=== PATIENT | female | born 1985 | race Caucasian/White ===

== ENCOUNTER 2018-08-01 10:42 | Outpatient (CLI) | payer OTHER ==
[2018-08-01 11:46] LABS: Hemoglobin 13.5 g/dL (12.0-16.0); Mean Corpuscular HGB CONC 32.6 g/dL (32.0-36.0); Mean Corpuscular Hemoglobin 31.9 pg (27.0-31.0); Mean Corpuscular Volume 97.9 fL (78.0-98.0); Mean Platelet Volume 6.6 fL (7.4-10.4); Platelet Count 415 thou/uL (130-400); Red Blood Cell (RBC) Count 4.24 mill/uL (4.20-5.40); White Blood Cell (WBC) Count 6.7 thou/uL (4.8-10.8)
[2018-08-01 12:00] LABS: BHCG - Serum Negative (NEGATIVE); Pregs Control Background? CLEAR/WHITE (CLR/WHITE); Pregs Control Bar Appear? YES (CONTROL BAR)
== END 2018-08-01 10:43 | disposition home or self-care (01) ==
LOC: LABBT 10:42
PROVIDERS: ATTEND Obstetrics & Gynecology
DX: Z01.812 Encounter for preprocedural laboratory examination (principal); R10.2 Pelvic and perineal pain; G89.29 Other chronic pain; Z80.41 Family history of malignant neoplasm of ovary
CPT/HCPCS: 84703; 85027; 86850; 86900; 86901

== ENCOUNTER 2018-08-03 09:51 | Day surgery (SDC) | payer OTHER ==
[2018-08-01 10:57] VITALS: BMI 26.4
[2018-08-03] MEDS ORDERED: CEFAZOLIN 2 GM/50 ML BAG ONE (10:21)
[2018-08-03] MEDS ORDERED: CeleCOXIB 100 MG CAP ONE (10:21)
[2018-08-03] MEDS ORDERED: Gabapentin 300 MG CAP ONE (10:21)
[2018-08-03] MEDS ORDERED: Fentanyl 100 MCG/2 ML VIAL ONE ×2 (10:55→14:00)
[2018-08-03] MEDS ORDERED: Famotidine/PF 20 mg/2ml Vial ONE (10:55)
[2018-08-03] MEDS ORDERED: Bupivacaine/Epinephrine 0.25% 30 ML VIAL ONE ×2 (11:42→12:29)
[2018-08-03] MEDS ORDERED: Midazolam HCl 2 mg/2 ml Vial ONE (11:48)
[2018-08-03] MEDS ORDERED: Meperidine HCl/PF 25 MG/ML VIAL ONE (13:42)
[2018-08-03] MEDS ORDERED: Ondansetron PF 4 MG/2 ML Vial ONE (15:11)
[2018-08-03] MEDS ORDERED: PROPOFOL 200 MG/20 ML VIAL ONE (15:11)
[2018-08-03] MEDS ORDERED: Glycopyrrolate 0.2 MG/ML 5 ML SYRINGE ONE (15:11)
[2018-08-03] MEDS ORDERED: Lidocaine 1% PF 5 ML VIAL ONE (15:11)
[2018-08-03] MEDS ORDERED: Ketorolac Tromethamine 30 MG/ML VIAL ONE (15:11)
[2018-08-03] MEDS ORDERED: Dexamethasone 20 MG/5 ML VIAL ONE (15:11)
--- NOTE | 2018-08-03 21:34 | OP ---
DATE OF PROCEDURE: 08/03/2018 PREOPERATIVE DIAGNOSES: Persistent right pelvic pain, painful intercourse and tender pelvic exam, st warren family history of ovarian cancer. POSTOPERATIVE DIAGNOSES: Persistent right pelvic pain, painful intercourse and tender pelvic exam, alem farmer family history of ovarian cancer, moderate bowel adhesive disease. Basically, normal appearing adnexa and uterus. Absent appendix. PROCEDURE: Diagnostic laparoscopy followed by right salpingo-oophorectomy and a left salpingectomy. SURGEON: Nghia Mckee M.D. MATTRESS WEAVER: Amanda Mohr M.D. 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 OPERATIVE FINDINGS: Included a moderate size uterus with normal appearing fallopian tubes with semi- pale uterine fundus. Normal right ovary which was not adherent or showing any signs of endometriosis . Normal left ovary and both tubes appeared normal. There were some upper abdominal adhesions to th e cecum and ascending colon, but none of these were appeared pathologic. OPERATIVE COMPLICATIONS: None. BLOOD LOSS: Less than 25 mL. DRAINS: Arellano was only drained during the procedure which was discontinued. COMPLICATIONS: None as previously noted. PROCEDURE IN DETAIL: The patient was taken to the operating room where she had been given IV cefazol in and had SCDs on. She was placed in lithotomy position, prepped and draped. A sponge stick was pl aced in the vagina because she had a Mirena IUD in place. The string was and she wanted to iris ve that. Her abdomen was prepped and draped and laparoscopic instruments were inserted first by using a Veress needle umbilical port and then incised large enough to accommodate a 10 mm trocar after the ab domen been insufflated to a pressure of 18 mm, which was later reduced to 15 mmHg. The larger trocar was inserted. The small lateral 5 mm trocars were inserted under local anesthetic. Similar technique and the instruments were used. The LigaSure device was used to take down the rig ht infundibulopelvic ligament and utero-ovarian ligament and then on the left side fallopian tube was excised with the same device, cauterizing and cutting as we went. There was no bleeding here. The specimen was placed on top of the uterine fundus. Endobag was placed through the larger laparoscope site. The laparoscope was then inserted through one of the lateral ports and the Endobag was placed in the abdomen and the specimens were placed within the Endobag and removed through the umbilical inc ision. The trocar closure device was used with 0 Vicryl suture to close the larger incision in the u mbilicus. The small incision was closed with subcuticular 3-0 plain suture after the gas was removed from the abdomen. The skin was reapproximated. The umbilical incision was sutured with subcuticula r 3-0 plain as well. Patient taken to recovery room having tolerated the procedure and anesthesia we ll. Arellano catheter was removed.
--- NOTE | 2018-08-04 01:07 | DIS ---
DATE OF ADMISSION: 08/03/2018 DATE OF DISCHARGE: 08/03/2018 REASON FOR ADMISSION: Persistent right pelvic pain, painful intercourse and tenderness on right exam as well as problem of strong family history of ovarian cancer to have cancer sparing surgery by meghann eneida of her left tube and pain relieving surgery by removal of right tube and ovary. She has been given adequate informed consent: On midday of 08/03/2018, she underwent a general anest hetic and a laparoscopic right salpingo-oophorectomy and left salpingectomy using the LigaSure device without complications. She was taken to the recovery room. Within approximately 2 hours, she was f elt to be ready for discharge. The nurse called and said her vital signs are normal. She had no ble eding, had no complaints of pain and had received Toradol in the operating room before going to [facility]. She has tramadol at home. IMPRESSION AND FINAL DIAGNOSES: Right pelvic pain, presumably due to an abnormal ovary, although it was grossly normal on inspection. Family history of ovarian cancer, now status post left salpingectomy and right salpingo-oophorectomy and Mirena IUD for cycle control. PLAN: Discharge the patient home on tramadol and Tylenol. She has got limitation regarding avoidanc e of intercourse and heavy lifting for a couple weeks. She will see me back in the office followup i n 2 weeks. She will go back to work on 08/07/2018. 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 Questions were entertained and she has emergency numbers to call if she has any p roblems.
== END 2018-08-03 15:28 | disposition home or self-care (01) ==
LOC: SDC 09:51
PROVIDERS: ATTEND Obstetrics & Gynecology
PROC: 0UT74ZZ Resection of Bilateral Fallopian Tubes, Percutaneous Endoscopic Approach (ICD-10-PCS; principal; 2018-08-03)
PROC: 0UT04ZZ Resection of Right Ovary, Percutaneous Endoscopic Approach (ICD-10-PCS; principal; 2018-08-03)
DX: G89.29 Other chronic pain (principal); R10.2 Pelvic and perineal pain; N83.01 Follicular cyst of right ovary; N73.6 Female pelvic peritoneal adhesions (postinfective); N94.10 Unspecified dyspareunia; F41.8 Other specified anxiety disorders; E66.3 Overweight; Z68.26 Body mass index [BMI] 26.0-26.9, adult; Z79.899 Other long term (current) drug therapy; Z80.41 Family history of malignant neoplasm of ovary; Z97.5 Presence of (intrauterine) contraceptive device
CPT/HCPCS: 88305; 96374; J0131; J1100; J1885; J2001; J2175; J2250; J2405; J2704; J3010; S0028

== ENCOUNTER 2018-08-04 02:03 | Emergency (ER) | payer OTHER ==
[2018-08-04] MEDS ORDERED: Ondansetron PF 4 MG/2 ML Vial ONE (02:15)
[2018-08-04] MEDS ORDERED: Ketorolac Tromethamine 30 MG/ML VIAL ONE (02:15)
[2018-08-04] MEDS ORDERED: Morphine 2 MG/ML SYRINGE ONE (02:15)
[2018-08-04 02:42] LABS: #Lymphocytes 1.7 thou/uL (1.20-3.40); #Monocytes 0.3 thou/uL (0.11-0.59); #Neutrophils 11.6 thou/uL (1.40-6.50); %Basophils 0.1 % (0.0-1.0); %Eosinophils 0.1 % (0.0-10.0); %Lymphocytes 12.2 % (21.0-51.0); %Monocytes 2.5 % (0.0-10.0); %Neutrophils 85.2 % (42.0-75.0); Hemoglobin 14.1 g/dL (12.0-16.0); Mean Corpuscular HGB CONC 33.9 g/dL (32.0-36.0); Mean Corpuscular Hemoglobin 32.1 pg (27.0-31.0); Mean Corpuscular Volume 94.7 fL (78.0-98.0); Mean Platelet Volume 6.7 fL (7.4-10.4); Platelet Count 518 thou/uL (130-400); White Blood Cell (WBC) Count 13.6 thou/uL (4.8-10.8)
[2018-08-04 02:53] LABS: Lactic Acid 2.9 mmol/L (0.5-2.2)
[2018-08-04 02:59] LABS: ALT (SGPT) 20 U/L (8-55); AST (SGOT) 16 U/L (5-34); Albumin 4.3 g/dL (3.5-5.0); Alkaline Phosphatase 119 U/L (40-150); Anion Gap 15 mmol/L (10-20); BUN (Urea Nitrogen) 10 mg/dL (7.0-18.7); Bilirubin, Total 0.5 mg/dL (0.2-1.2); Calc. Creatinine Clearance 0 mL/min (70-130); Calcium 9.8 mg/dL (7.8-10.44); Carbon Dioxide 20 mmol/L (22-29); Chloride 105 mmol/L (98-107); Estimated GFR-MDRD 79; Globulin 3.1 g/dL (2.4-3.5); Glucose 154 mg/dL (70-105); Lipase 10 U/L (8-78); Protein, Total 7.4 g/dL (6.0-8.3); Sodium 136 mmol/L (136-145)
--- NOTE | 2018-08-04 07:55 | CT ---
PRELIMINARY REPORT/[facility]/EMERGENTY AFTER-HOURS PROCEDURE CT Abdomen and Pelvis With Intravenous Contrast EXAM DATE/TIME: 08/04/2018 2:58 AM CLINICAL HISTORY: 32 years old, female; Pain; Abdominal pain; Localized; Lower; Prior surgery; Surgery date: Postoperat lacho (0-2 days); Patient HX: Lower abdominal pain; Patient recently had right ovary SX removal and tub al ligation yesterday. PT reports recent surgery and reports she had been feeling fine until today around 8: 30 after she moved a heavy mattress and then experienced some pain. PT denies any vag inal bleeding or discharge. PT denies any vaginal intercourse or tampon use since surgery. PT reports she doesn't have normal bowel movements and can go a weak without having a bowel movement and hasn't had to go today. Ermd discussed plan with PT and family. Surgical history of appendectomy, surgical history of cholecystectomy, surgical history of section x2, laparoscopic removal o f benign tumor removed from l ovary TECHNIQUE: Axial computed tomography images of the abdomen and pelvis with intravenous contrast. Coronal reformatted images were created and reviewed. COMPARISON: No relevant prior studies available. FINDINGS: Lower thorax: No acute findings. ABDOMEN: Liver: Normal. No mass. Gallbladder and bile ducts: Prior cholecystectomy. Pancreas: Normal. No ductal dilation. Spleen: Normal. No splenomegaly. Adrenals: Normal. No mass. Kidneys and ureters: Normal. No hydronephrosis. Stomach and bowel: Colonic diverticulosis. No diverticulitis. No bowel wall thickening or intestinal obstruction. Appendix: Appendix not visualized. No evidence of appendicitis. PELVIS: Bladder: Unremarkable as visualized. Reproductive: 2 cm luteal cyst of the left ovary appears partially collapsed/ruptured. IUD in place, appears adequately positioned. ABDOMEN and PELVIS: Intraperitoneal space: Physiologic amount of free fluid in the pelvis. Expected postoperative pneumop eritoneum. Bones/joints: No acute fracture. No dislocation. Soft tissues: Expected postsurgical changes of the anterior abdominal wall. Vasculature: Normal. No abdominal aortic aneurysm. Lymph nodes: Normal. No enlarged lymph nodes. IMPRESSION: 1. 2 cm luteal cyst of the left ovary appears partially collapsed/ruptured. 2. Expected postoperative pneumoperitoneum. Thank you for allowing us to participate in the care of your patient. Dictated and Authenticated by: Carlos De Jesus MD 08/04/2018 3:10 AM Central Time ([place] & [place]) FINAL REPORT CT ABDOMEN AND PELVIS WITH IV CONTRAST: I agree with the preliminary report given by Dr. Carlos De Jesus of [facility]. There are a few tiny low- density lesions in the dome of the liver, likely cysts. POS: [facility]
[2018-08-04] MEDS ORDERED: ISOVUE-370 76%-LOCM 1 ML ONE (12:28)
== END 2018-08-04 04:03 | disposition home or self-care (01) ==
LOC: ERS 02:03
DX: G89.18 Other acute postprocedural pain (principal); R10.9 Unspecified abdominal pain; K59.00 Constipation, unspecified; N83.202 Unspecified ovarian cyst, left side
CPT/HCPCS: 36415; 74177; 80053; 83605; 83690; 85025; 96361; 96374; 96375; J1885; J2270; J2405

== ENCOUNTER 2018-09-13 11:44 | Outpatient (CLI) | payer OTHER ==
--- NOTE | 2018-09-13 14:51 | MRI ---
MRI LUMBAR SPINE WITH AND WITHOUT CONTRAST: HISTORY: Right leg and back pain. COMPARISON: 12/11/2016 TECHNIQUE: An MRI of the lumbar spine is performed with and without intravenous Gadolinium administration. Mult isequential, multiplanar imaging is performed. FINDINGS: Appropriate T1 marrow signal intensity of the lumbar vertebrae. Lumbar spine vertebral body height i s maintained. There is no fracture. No significant STIR hyperintensity to suggest vertebral body ed susan or ligamentous injury. Post contrast images demonstrate appropriate enhancement of the vertebral bodies. No abnormal enhanc ement within the central spinal canal, including the cauda equina and the conus medullaris. Appropriate signal intensity in the visualized solid organs. Symmetric signal intensity of the psoas muscles. The conus medullaris terminates at the mid L1 level. T12-L1: Adequate disk hydration. No significant central canal stenosis. The neural foramina are pa tent. L1-L2: Adequate disk hydration. No significant central canal stenosis. The neural foramina are pat ent. L2-L3: Adequate disk hydration. No significant central canal stenosis. The neural foramina are pat ent. L3-L4: Adequate disk hydration. No significant central canal stenosis. The neural foramina are pat ent. L4-L5: Posterior midline laminectomy defect. Desiccation with mild loss of disk space height. Gene ralized disk bulge without significant central canal stenosis. The right neural foramen is patent. Mild left foraminal narrowing. Post contrast images demonstrate minimal enhancing scar tissue at the laminectomy defect site. L5-S1: Minimal desiccation without significant loss of disk space height. There is persistent T2 an d STIR hyperintensity with associated enhancement involving the midline of the disk. Small annular f issure is redemonstrated. There has been no appreciable change. There is no significant central can al stenosis or neural foraminal narrowing. IMPRESSION: 1. Postoperative changes at L4-L5. 2. No significant central canal stenosis or significant foraminal narrowing. 3. Redemonstration of an annular fissure at L5-S1. 4. No significant associated central canal stenosis or foraminal narrowing. POS: [facility]
--- NOTE | 2018-09-13 14:54 | RAD ---
LUMBAR SPINE RADIOGRAPHS FOUR VIEWS: Comparison: 07-11-14 Indication: Radiculopathy of the lumbar spine, pain. FINDINGS: Flexion, extension, lateral projections in additional to frontal view of the lumbar spine provided. T here is no significant malalignment or obvious translational motion. Mild disc degenerative narrowing of the L4-5 and L5-S1 spaces is present with endplate sclerosis and mild osteophytosis. There is mil d facet osteoarthritis of the lumbar spine inferiorly. Intrauterine device is incidentally noted. IMPRESSION: No evidence of significant malalignment or translational motion within the lumbar spine. POS: [facility]
== END 2018-09-13 11:45 | disposition home or self-care (01) ==
LOC: MRI 11:44
PROVIDERS: ATTEND Neurological Surgery
DX: M54.16 Radiculopathy, lumbar region (principal); Z98.890 Other specified postprocedural states
CPT/HCPCS: 72120; 72158

== ENCOUNTER 2019-02-23 13:35 | Outpatient (CLI) | payer OTHER ==
--- NOTE | 2019-02-23 14:23 | MRI ---
MRI LUMBAR SPINE WITHOUT CONTRAST: HISTORY: Lumbar radicular pain. Low back pain since 2016. COMPARISON: 12/03/2016, 12/11/2016, 09/13/2018 FINDINGS: Appropriate T1 marrow signal intensity of the lumbar vertebra. Vertebral body height is maintained. No fracture. No significant STIR hyperintensity to suggest vertebral body edema or ligamentous injury. Appropriate signal intensity of the paraspinal muscles and solid organs. The conus medullaris terminates at the mid L1 level. Redemonstration of a laminectomy defect at the L4-L5 disk space. T12-L1: Adequate disc hydration. No significant central canal stenosis or neural foraminal narrowing . L1-L2: Adequate disc hydration. No significant central canal stenosis or neural foraminal narrowing . L2-L3: Adequate disc hydration. No significant central canal stenosis or neural foraminal narrowing . L3-L4: Adequate disc hydration. No significant central canal stenosis or neural foraminal narrowing . L4-L5: Posterior laminectomy defect. Stable loss of disc space height and disc desiccation. Genera lized disc bulge with a central and right subarticular disc protrusion, which flattens the ventral thecal sac. Encroachment upon both subarticular zones, right slightly greater than left. Neverthele ss, there is only mass effect without obscuration of the traversing bilateral L5 nerve roots. Bilaterally, the neural foramina are mildly narrowed. L5-S1: Desiccation with mild loss of disc space height. There is a persistent T2 hyperintensity robert ng the posterior margin of the annulus, which has been previously described to be an annular fissure. No significant central canal stenosis. Mild bilateral foraminal narrowing. IMPRESSION: Stable postoperative changes at L4-L5. Slight interval mass effect upon the ventral thecal sac at L4 -L5. Disc material does abut but does not obscure either traversing L5 nerve root. Transcribed Date/Time: 02/23/2019 2:42 PM
== END 2019-02-23 13:36 | disposition home or self-care (01) ==
LOC: BICMRI 13:35
PROVIDERS: ATTEND Specialist
DX: M54.16 Radiculopathy, lumbar region (principal); M48.9 Spondylopathy, unspecified; Z98.890 Other specified postprocedural states
CPT/HCPCS: 72148

== ENCOUNTER 2019-06-07 08:28 | Emergency (ER) | payer OTHER ==
--- NOTE | 2019-06-07 10:39 | CT ---
CT Lumbar Spine WO Con History: Trauma Comparison: MRI lumbar spine February 23, 2019 Findings: There is no acute fracture or malalignment of the lumbar spine. The transverse processes ar e intact. Mild degenerative changes of the SI joints. Intrauterine device of the uterus. No free fluid within the pelvis. Punctate right renal calculi. Large disc extrusion at L4/L5 causes bilateral neural foraminal narrowing as well as spinal canal josefina rowing. Impression: 1. No acute fracture of the lumbar spine. 2. Large disc extrusion at L4/L5 as seen on the February 23, 2019 MRI exam.
== END 2019-06-07 10:52 | disposition home or self-care (01) ==
LOC: ERS 08:28
DX: M54.5 Low back pain (principal); F32.9 Major depressive disorder, single episode, unspecified; Z79.899 Other long term (current) drug therapy; W01.0XXA Fall on same level from slipping, tripping and stumbling without subsequent striking against object, initial encounter
CPT/HCPCS: 72131

== ENCOUNTER 2019-07-06 11:18 | Outpatient (CLI) | payer OTHER ==
--- NOTE | 2019-07-06 14:58 | MRI ---
LUMBAR SPINE MRI WITH AND WITHOUT CONTRAST: DATE: 07/06/2019. HISTORY: Back pain with back spasms and right leg tingling, prior lumbar spine laminectomy. TECHNIQUE: Multiplanar multisequence MR imaging of the lumbar spine is obtained with and without contrast. FINDINGS: On the basis of 5 lumbar-type vertebral bodies, the conus medullaris terminates at the L1 level. The sagittal STIR imaging demonstrates no focal area of osseous marrow edema. T12-L1: Intervertebral disc height and signal intensity is within normal limits with no significant c entral canal or neural foraminal stenosis. L1-2: Intervertebral disc height and signal intensity is within normal limits with no significant vangie tral canal or neural foraminal stenosis. L2-3: Intervertebral disc height and signal intensity is within normal limits with no significant vangie tral canal or neural foraminal stenosis. L3-4: Intervertebral disc height and signal intensity within normal limits. No significant central ca nal or neural foraminal stenosis. L4-5: There is disc space narrowing, disc desiccation, and disc bulge. The patient appears status pos t laminectomy at this level. The disc bulge has increased in conspicuity when compared to the 2018 examination. There is no significant central canal stenosis however. Mild facet hypertrophy is presen t with no significant neural foraminal stenosis. L5-S1: There is mild disc space narrowing and disc desiccation with minimal disc bulge. No central ca nal stenosis. Small stable central annular tear. Mild bilateral facet hypertrophy with no significant neural foraminal stenosis on either side. The postcontrast imaging demonstrates no abnormal enhancement involving the contents of the thecal sa c. There is minimal enhancement posterior to the facet joint on the right at L4-5 which may signify mild scar or inflammatory change. The imaged retroperitoneal structures appear grossly unremarkable. IMPRESSION: Postoperative and degenerative change within the lumbar spine as detailed above. No severe central ca nal or neural foraminal stenosis. Transcribed Date/Time: 07/06/2019 3:07 PM
--- NOTE | 2019-07-06 15:09 | RAD ---
4 views of the lumbar spine: 07/06/2019 COMPARISON: None HISTORY: Lumbar spondylolisthesis FINDINGS: IUD overlies the pelvis. Clips in the right upper quadrant suggest prior cholecystectomy. L umbar pedicles appear intact on frontal imaging. The lateral neutral, flexion, and extension views demonstrate no anterolisthesis or retrolisthesis. Laminectomy changes are noted at L4. IMPRESSION: Postoperative changes. No acute osseous abnormality.
== END 2019-07-06 11:19 | disposition home or self-care (01) ==
LOC: BICMRI 11:18
PROVIDERS: ATTEND Neurological Surgery
DX: M43.16 Spondylolisthesis, lumbar region (principal); M47.816 Spondylosis without myelopathy or radiculopathy, lumbar region; Z98.890 Other specified postprocedural states
CPT/HCPCS: 72110; 72158

== ENCOUNTER 2019-07-31 06:28 | Outpatient (CLI) | payer OTHER ==
[2019-07-31 10:39] LABS: Hemoglobin 12.8 g/dL (12.0-16.0); Mean Corpuscular HGB CONC 34.2 g/dL (32.0-36.0); Mean Corpuscular Hemoglobin 33.7 pg (27.0-31.0); Mean Corpuscular Volume 98.5 fL (78.0-98.0); Mean Platelet Volume 7.3 fL (7.4-10.4); Platelet Count 340 thou/uL (130-400); RBC Distribution Width 11.5 % (11.5-14.5); White Blood Cell (WBC) Count 6.5 thou/uL (4.8-10.8)
[2019-07-31 10:45] LABS: PTT 37.3 SEC (22.9-36.1); Prothrombin Time 12.9 SEC (12.0-14.7)
== END 2019-07-31 06:29 | disposition home or self-care (01) ==
LOC: LABBT 06:28
PROVIDERS: ATTEND Neurological Surgery
DX: Z01.812 Encounter for preprocedural laboratory examination (principal); M43.16 Spondylolisthesis, lumbar region
CPT/HCPCS: 85027; 85610; 85730

== ENCOUNTER 2019-08-01 05:31 | Inpatient (IN) | payer OTHER ==
[2019-07-31 09:12] VITALS: BMI 26.2
--- NOTE | 2019-07-31 17:21 | HP ---
HISTORY OF PRESENT ILLNESS: Ms. Reynoso is back in the office. She has had an L4-L5 laminectomy and diskectomy for a very large disk herniation in 2017. She did well and the past year has been difficult. There is pain with rolling over in bed. There is locking of the back in certain positions. There is pain down the right leg to the top of the foot. There is no new weakness. No incontinence. She has done therapy five times. Recently in April, she has had injections. Recent falls took her to the ER, where a CT has not revealed any fractures, but showed the L4-L5 disk was prominently out of place. PAST MEDICAL HISTORY: Depression, anemia, ovarian tumor, IBS. PAST SURGICAL HISTORY: Appendectomy, x2, cholecystectomy, left ovarian tumor removal, lumbar L4-L5 laminectomy. FAMILY HISTORY: Father alive with hypertension. Mother is alive. SOCIAL HISTORY: The patient is a nonsmoker. Denies other tobacco use. Uses alcohol occasionally. No other illicit drug use. 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 REVIEW OF SYSTEMS: A 10-point review of systems has been completed and is negative other than stated in the above HPI. PHYSICAL EXAMINATION: CONSTITUTIONAL: The patient is awake, alert, oriented, in no visible distress, nontoxic. RESPIRATIONS: Normal work of breathing on room air. NEUROLOGIC: Gait and station, walk gingerly, but stable balance. Motor exam; there is normal strength in the iliopsoas, quadriceps, hamstrings, gastrocs, and toe flexors. Mild if any anterior tibialis weakness. Sensory exam, L5 right greater than left distribution. IMAGING: MRI shows L4-L5 disk protrusion. No instability on flexion extension x-rays. ASSESSMENT AND PLAN: Ms. Reynoso is a 33-year-old female with a recurrent disk protrusion at L4-L5. We have recommended redo laminectomy of L4-L5 with a transforaminal interbody fusion. The patient states that she is willing to proceed with this procedure and understands the risks. Job ID: [id number]
[2019-08-01] MEDS ORDERED: Bupivacaine HCl 0.5%/Epinephrine 1:200,000/PF 30 ml Vial ONE (06:12)
[2019-08-01] MEDS ORDERED: Sodium Chloride 0.9% 20 ML ONE (06:12)
[2019-08-01] MEDS ORDERED: Thrombin 5000 UNITS/5 ML VIAL ONE (06:12)
[2019-08-01] MEDS ORDERED: Albumin 5% 500 ML ONE (06:34)
[2019-08-01] MEDS ORDERED: Fentanyl 250 MCG/5 ML VIAL ONE (06:55)
[2019-08-01] MEDS ORDERED: Midazolam HCl 2 mg/2 ml Vial ONE (07:00)
[2019-08-01] MEDS ORDERED: Phenylephrine HCL 10 MG/ML VIAL ONE (09:56)
[2019-08-01] MEDS ORDERED: PHENYLEPHRINE-NS 100 MCG/ML 10 ML SYRINGE ONE (10:34)
[2019-08-01] MEDS ORDERED: PROPOFOL 200 MG/20 ML VIAL ONE (10:34)
[2019-08-01] MEDS ORDERED: Rocuronium Bromide 10 MG/ML (10ML VIAL) ONE (10:34)
[2019-08-01] MEDS ORDERED: Dexamethasone 20 MG/5 ML VIAL ONE (10:34)
[2019-08-01] MEDS ORDERED: ePHEDrine/0.9% NaCl/PF SYRINGE 50 mg/10 ml ONE (10:34)
[2019-08-01] MEDS ORDERED: Ondansetron PF 4 MG/2 ML Vial ONE (10:34)
[2019-08-01] MEDS ORDERED: Glycopyrrolate 0.2 MG/ML 5 ML SYRINGE ONE (10:34)
[2019-08-01] MEDS ORDERED: Lidocaine 1% PF 5 ML VIAL ONE (10:34)
[2019-08-01] MEDS ORDERED: diphenhydrAMINE 50 MG/ML VIAL IVP PRN (12:01)
[2019-08-01] MEDS ORDERED: Acetaminophen 325 MG TAB PO PRN (12:01)
[2019-08-01] MEDS ORDERED: Acetaminophen 650 MG Suppository PR PRN (12:01)
[2019-08-01] MEDS ORDERED: Promethazine 25 MG TAB PO PRN (12:01)
[2019-08-01] MEDS ORDERED: diphenhydrAMINE 25 MG CAP PO PRN (12:01)
[2019-08-01] MEDS ORDERED: Morphine 4 MG/ML VIAL SLOW IVP PRN (12:01)
[2019-08-01] MEDS ORDERED: Mag-Al 1200 mg/1200 mg/30 ML UDCUP PO PRN (12:01)
[2019-08-01] MEDS ORDERED: Morphine 2 MG/ML SYRINGE SLOW IVP PRN (12:01)
[2019-08-01] MEDS ORDERED: Bisacodyl 10 MG SUPP PR PRN (12:01)
[2019-08-01] MEDS ORDERED: Ondansetron PF 4 MG/2 ML Vial IVP PRN (12:01)
[2019-08-01] MEDS ORDERED: Acetaminophen/Codeine 30-300mg Tablet PO PRN (12:01)
[2019-08-01] MEDS ORDERED: Milk Of Magnesia 30 ML UDCUP PO PRN (12:01)
[2019-08-01] MEDS ORDERED: Promethazine HCl 25 MG/ML VIAL IM PRN (12:01)
[2019-08-01] MEDS ORDERED: HYDROmorphone 2 MG/ML VIAL ONE ×2 (12:02→14:21)
[2019-08-01] MEDS ORDERED: HYDROcodone/Acetaminophen 10/325 mg Tablet PO PRN (12:06)
[2019-08-01] MEDS ORDERED: Fentanyl 100 MCG/2 ML VIAL ONE ×3 (12:24→13:48)
--- NOTE | 2019-08-01 12:27 | OP ---
DATE OF PROCEDURE: 08/01/2019 MANOMETER TECHNICIAN: Priscilla Odell PA-C PREOPERATIVE INDICATION: Treat pain and prevent neurological deterioration. PREOPERATIVE DIAGNOSES: Prior L4-5 laminectomy with diskectomy, current L4-5 spinal instability, pain, and right L5 radiculopathy. POSTOPERATIVE DIAGNOSES: Prior L4-5 laminectomy with diskectomy, current L4-5 spinal instability, pain, and right L5 radiculopathy. PROCEDURES PERFORMED: Reopening lumbar incision, repeat laminectomy, facetectomy, foraminotomy, L4-L5; transforaminal lumbar interbody arthrodesis, L4-L5; placement of intervertebral biomechanical device, L4-L5; pedicle screw and ayleen instrumentation, L4 and L5; posterolateral arthrodesis L4 and L5; local morselized autograft, morselized allograft, and operating microscope. PREOPERATIVE MEDICATIONS: Ancef 2 g IV. DRAIN NUMBER: Zero. DRAIN TYPE: None. DESCRIPTION OF PROCEDURE: The patient was brought to the operating room. General endotracheal anesthesia was induced. The patient was carefully positioned on the Jose A frame with her chest and hips supported by the appropriate attachments of the Jose A frame. A lateral fluoro radiograph was used to confirm that the previous incision was centered at L4-L5. We planned an extension giving us access to the pedicles of L4 and L5 as well. The lumbar skin was sterilely prepped and draped. We opened our planned incision with a 10 blade knife and controlled bleeding with bipolar cautery. We used monopolar cautery to dissect through subcutaneous tissues to the thoracodorsal fascia. We incised the fascia in the midline and reflected the paraspinal muscles and scar tissue off the spinous process and lamina of the inferior portion of L3, all of L4, and all of L5. We carried our dissection over to the facet joints. We placed a marker at L4-L5 and took a lateral fluoro radiograph to confirm the levels upon which we were operating. We then carried our dissection over the facet joints at L3-L4 and L4-L5 to identify the transverse processes of L4 and L5 bilaterally. We then turned our attention to decompression. Using curettes, we scar tissue from the remainder of the lamina of L4 and the top of L5. Using Kerrison rongeurs, we widened and extended our laminectomies. We carried our laminectomy superiorly until there was a rim of L4 left. We widened until we were around scar tissue and flushed with the L5 pedicles, and we carried our dissection inferiorly until we were past the scar tissue and could identify normal dura. The operating microscope was brought into the field. Under microscopic magnification and using microsurgical techniques, we freed the L5 nerve roots from scar tissue over the interspace. We ensured the L4 nerve roots were free, and we made sure that we could retract the thecal sac to access the intervertebral space. We then performed a complete facetectomy of L4-5 on the right side. This gave us extra room to access the interspace. Under the microscope, we incised the interspace, and we removed disk contents using curettes and rongeurs. We then prepared the endplates for grafting with up and down angled curettes and measured the height of the interspace with a bone rasp to 9 mm. A 9 mm PEEK graft was brought into the field. Bone removed during our decompression was carefully cleaned of soft tissue, morcellized and added into demineralized bone matrix to form our fusion substrate. The substrate was packed into the center of our PEEK graft and that was advanced into the interspace under radiographic guidance to the appropriate depth. We turned our attention to pedicle screw instrumentation. The operative microscope was taken out of the field. Using bony anatomic landmarks, palpation of the medial portion of the pedicles, and a lateral fluoro radiograph as our guide, we chose entry points for pedicle screws at L4 and L5 bilaterally. We drilled out our entry points and then used a bone awl to advance through the pedicles to the vertebral bodies. We probed our trajectories and found it completely encased in bone. We then used a 5.5 mm tap to tap our trajectories. We placed 6.5 mm diameter screws. The screws were placed in the pedicles of L4 and L5, and we confirmed positioning with a 360-degree image set using our isocentric C-arm. With this confirmation completed, we brought the rods into the field. Titanium rods were placed down into the screw heads, and we tightened caps over the rods. We compressed across the interspace while we used a torque/counter-torque mechanism to ensure adequate tightness of the caps. We irrigated with bacitracin irrigation. We then decorticated the transverse processes of L4 and L5 bilaterally, and over the decorticated bone, we left demineralized bone matrix and morselized autograft as our posterolateral fusion substrate. We infused local anesthetic in the paraspinal muscles. We treated the wound with vancomycin powder, and we closed in anatomical layers. This was a clean case, no contamination. Job ID: [id number]
[2019-08-01] MEDS ORDERED: CEFAZOLIN 2 GM in Premix Bag 1 BAG IVPB SCH (14:00)
[2019-08-01] MEDS ORDERED: HYDROmorphone 0.5 MG/0.5 ML SYRINGE ONE (14:08)
[2019-08-01] MEDS: Acetaminophen/Codeine 30-300mg Tablet PO PRN ×2 (17:05→20:03)
[2019-08-01] MEDS: Sodium Chloride 0.9% 1,000 ML IV SCH ×2 (17:16→18:23)
[2019-08-01] MEDS ORDERED: Sodium Chloride 0.9% 500 ML IV SCH ×2 (18:15→23:45)
[2019-08-01] MEDS: tiZANidine HCl 4 MG TAB PO PRN (18:21)
[2019-08-01] MEDS: CEFAZOLIN 2 GM in Premix Bag 1 BAG IVPB SCH (18:22)
[2019-08-01] MEDS: Venlafaxine HCl XR 75 MG CAP PO SCH (20:45)
[2019-08-01] MEDS: Topiramate 25 MG TAB PO SCH (20:45)
[2019-08-01] MEDS ORDERED: Venlafaxine HCl XR 150 MG CAP PO SCH (21:00)
[2019-08-01] MEDS: Acetaminophen 1,000 MG in Premix Bag 1 BAG IVPB SCH (21:42)
[2019-08-02] MEDS: Acetaminophen 1,000 MG in Premix Bag 1 BAG IVPB SCH (03:14)
[2019-08-02] MEDS: CEFAZOLIN 2 GM in Premix Bag 1 BAG IVPB SCH (03:58)
[2019-08-02 04:32] LABS: #Lymphocytes 2.2 thou/uL (1.20-3.40); #Monocytes 0.7 thou/uL (0.11-0.59); #Neutrophils 6.7 thou/uL (1.40-6.50); %Basophils 0.3 % (0.0-1.0); %Eosinophils 0.5 % (0.0-10.0); %Lymphocytes 22.6 % (21.0-51.0); %Monocytes 6.9 % (0.0-10.0); %Neutrophils 69.7 % (42.0-75.0); Hemoglobin 9.5 g/dL (12.0-16.0); Mean Corpuscular HGB CONC 34.4 g/dL (32.0-36.0); Mean Corpuscular Hemoglobin 33.8 pg (27.0-31.0); Mean Corpuscular Volume 98.4 fL (78.0-98.0); Mean Platelet Volume 7.3 fL (7.4-10.4); Platelet Count 253 thou/uL (130-400); RBC Distribution Width 11.5 % (11.5-14.5); White Blood Cell (WBC) Count 9.6 thou/uL (4.8-10.8)
--- NOTE | 2019-08-02 07:50 | PRG ---
DATE OF SERVICE: 08/02/2019 I saw Hilda Reynoso in her hospital room this morning. She is one day out from revision laminectomy with TLIF at L4-L5. Overnight, her blood pressures dipped into the 70s at one point, and for this reason, narcotic analgesics were withheld. This has made her back extremely sore and she has not been out of bed due to pain control issues. When I entered this morning, blood transfusion is being administered. Her hemoglobin is 9.5. On electronic chart, no fevers have been recorded and the vital signs show blood pressures from 77 to 92. Other vital signs have been stable. On examination, there is no new neurological deficit in the lower extremities. The right L5 radicular pain and numbness are much better than they were before surgery. Plan today is to make adjustments to her analgesic regimen to allow her blood pressure to stay up and to allow her to participate in ambulation. When she begins moving around, I think her blood pressure will respond nicely and this will decrease the pain from muscle spasm in her back. Hopefully, we can make significant improvement today so that she may be ready for discharge by tomorrow. Job ID: [id number]
[2019-08-02] MEDS: tiZANidine HCl 4 MG TAB PO PRN ×2 (08:24→20:42)
[2019-08-02] MEDS: Acetaminophen/Codeine 30-300mg Tablet PO PRN (09:11)
[2019-08-02] MEDS: fentaNYL Citrate/PF 2,000 MCG in Sodium Chloride 0.9% 60 ML IV PRN (11:20)
[2019-08-02] MEDS: Topiramate 25 MG TAB PO SCH ×2 (11:24→20:42)
[2019-08-02] MEDS: Acetaminophen 500 MG TAB PO SCH ×3 (16:45→23:29)
[2019-08-02] MEDS: Sodium Chloride 0.9% 1,000 ML IV SCH (16:45)
[2019-08-02] MEDS: Venlafaxine HCl XR 75 MG CAP PO SCH (20:42)
[2019-08-03] MEDS: Acetaminophen 500 MG TAB PO SCH ×4 (05:47→23:16)
[2019-08-03] MEDS: Sodium Chloride 0.9% 1,000 ML IV SCH ×2 (05:49→23:16)
[2019-08-03] MEDS: Topiramate 25 MG TAB PO SCH ×2 (09:08→20:36)
[2019-08-03] MEDS: tiZANidine HCl 4 MG TAB PO PRN ×2 (09:24→15:15)
[2019-08-03] MEDS: fentaNYL Citrate/PF 2,000 MCG in Sodium Chloride 0.9% 60 ML IV PRN (16:47)
[2019-08-03] MEDS: Venlafaxine HCl XR 75 MG CAP PO SCH (20:35)
[2019-08-04] MEDS: Acetaminophen 500 MG TAB PO SCH ×2 (05:31→11:53)
[2019-08-04] MEDS: Topiramate 25 MG TAB PO SCH (08:25)
[2019-08-04] MEDS ORDERED: Baclofen 10 MG TAB PO SCH (09:00)
--- NOTE | 2019-08-04 09:00 | PRG ---
DATE OF SERVICE: 08/04/2019 Ms. Reynoso is postop day #3, following lumbar TLIF. She is doing mostly well. She is on [place] currently, but we have discussed this discontinuing at this morning. I will put in orders for oral medications, combination of anti-inflammatories and classic pain medications. We will see how she tolerates this and potentially, could go home as early as this afternoon. I will plan to recheck out later after lunch time to see how she is doing. Job ID: [id number]
[2019-08-04] MEDS: Acetaminophen/Codeine 30-300mg Tablet PO PRN ×2 (09:38→14:30)
[2019-08-04] MEDS: Sodium Chloride 0.9% 1,000 ML IV SCH (09:39)
[2019-08-04] MEDS ORDERED: Ketorolac Tromethamine 15 MG/ML VIAL IVP SCH (12:00)
[2019-08-04] MEDS ORDERED: Ketorolac Tromethamine 30 MG/ML VIAL IVP SCH (12:00)
[2019-08-04] MEDS ORDERED: Acetaminophen/Codeine 30-300mg Tablet PO PRN ×2 (15:00)
[2019-08-04 15:32] VITALS: BP 91/57; TEMP 98.5
[2019-08-04] MEDS ORDERED: Acetaminophen 325 MG TAB PO PRN (16:00)
[2019-08-04] MEDS ORDERED: Acetaminophen 650 MG Suppository PR PRN (16:00)
--- NOTE | 2019-08-06 11:37 | DIS ---
DATE OF ADMISSION: 08/01/2019 DATE OF DISCHARGE: 08/04/2019 ADMITTING DIAGNOSIS: L5 radiculopathy and unstable L4-L5 listhesis. PROCEDURE PERFORMED: Redo lumbar diskectomy and translaminar interbody fusion L4-L5. BRIEF HOSPITAL COURSE: The patient did well in surgery. We admitted her to the hospital. We consulted PT and OT. Once she was safe for activities of daily living, her pain was under control. She was eating and using the restroom on her own. She was discharged home. Job ID: [id number]
--- NOTE | 2019-08-06 21:19 | PQF ---
CURTIS SEGURA L GERARD MD [id number] [facility]MERLY [facility] A 20[birth year] [id number] I HAVE BEEN ASKED TO SIGN THIS DOCUMENT IN SPITE OF ERRONEOUS ATTRIBUTION OF AUTHORSHIP. 'Report Dict Livia Gu' IS FALSE, THIS WAS NOT CREATED BY ME. I SUSPECT THE PERSON WHO CREATED IT IS: [email or web address]. IT IS NOT A PAPER FEEDER OF ANY DICTATION. FURTHER, THE DOCUMENT CANNOT BE REMOVED FROM MY ELECTRONIC INBOX WITHOUT A SIGNATURE, AND NOT SIGNING LEADS TO ADMINISTRATIVE PENALTIES FOR MEDICAL RECORD NON-COMPLIANCE. THEREFORE, IT UST BE SIGNED. I CANNOT ALTER THE FORM, I HAVE BEEN TOLD IT IS ALREADY PART OF THE MEDICAL RECORD. THE PATIENT IS ALREADY HOME. HER POST-OP COURSE WAS NOTABLE FOR A LOWER THAN AVERAGE BLOOD PRESSURE, EXACERBATED BY ANALGESIC ADMINISTRATION. THE ON-CALL TEAM TREATED HER WITH A BLOOD TRANSFUSION, FOR HGB BETWEEN 9-10. THIS LEVEL OF HGB, BY ITSELF, WOULD NOT BE TERRIBLY CONCERNING. THE LOW BP IN COMBINATION WITH THE HGB PROMPTED TREATMENT BECAUSE SHE WAS DEEMED TO BE SYMPTOMATIC. CLINICAL DOCUMENTATION CLARIFICATION FORM: POST DISCHARGE Addendum to original discharge summary date: ____ Late entry note date: __ DATE: 08/06/19 ATTN: DR.TOUSSAINT URBINA Please exercise your independent, professional judgment in responding to the clarification form. Clinical indicators are provided on the bottom of this form for your review Can you please further specify the specificity of anemia? Please check appropriate box(s): [ ] Acute blood loss anemia [ ] Post-op anemia related to acute blood loss [ ] Anemia unspecified [ ] Other diagnosis please specify [ ] Unable to determine In addition, please specify: Present on Admission (POA): [ ] Yes [ ] No [ ] Unable to determine For continuity of documentation, please document condition throughout progress notes and discharge summary. Thank You. CLINICAL INDICATORS - SIGNS / SYMPTOMS / LABS H and P pg.1- Anemia Laboratory- HGB 9.0L, 9.5L Laboratory- HCT 25.8L, 27.5L PN 08/02 pg.1- blood transfusion is being administered. Her hemoglobin is 9.5 RISK FACTORS Posterolateral arthrodesis- OP report pg.1 08/01 TREATMENTS: PRBC- Blood bank 08/02 IV Fluids- MAR 08/02 (This form is maintained as a part of the permanent medical record) 2014 [employer]. All Rights Reserved Jaime [email or web address] [not provided] MTDD
== END 2019-08-04 16:12 | disposition home or self-care (01) | DRG 455 ==
LOC: SURG A 05:31
PROVIDERS: ADMIT Neurological Surgery; ATTEND Neurological Surgery
PROC: 0SG00AJ Fusion of Lumbar Vertebral Joint with Interbody Fusion Device, Posterior Approach, Anterior Column, Open Approach (ICD-10-PCS; principal; 2019-08-01)
PROC: 0SG0071 Fusion of Lumbar Vertebral Joint with Autologous Tissue Substitute, Posterior Approach, Posterior Column, Open Approach (ICD-10-PCS; 2019-08-01)
PROC: 01NB0ZZ Release Lumbar Nerve, Open Approach (ICD-10-PCS; 2019-08-01)
PROC: 0SB20ZZ Excision of Lumbar Vertebral Disc, Open Approach (ICD-10-PCS; 2019-08-01)
PROC: 30233N1 Transfusion of Nonautologous Red Blood Cells into Peripheral Vein, Percutaneous Approach (ICD-10-PCS; 2019-08-01)
DX: M43.16 Spondylolisthesis, lumbar region (principal); M51.16 Intervertebral disc disorders with radiculopathy, lumbar region; M53.2X6 Spinal instabilities, lumbar region; F32.9 Major depressive disorder, single episode, unspecified; D64.9 Anemia, unspecified; K58.9 Irritable bowel syndrome, unspecified; Z90.49 Acquired absence of other specified parts of digestive tract
CPT/HCPCS: 36415; 36430; 76000; 85014; 85018; 85025; 85027; 85610; 85730; 86850; 86900; 86901; C1713; C1768; J0131; J0670; J0690; J1100; J1170; J1885; J2001; J2250; J2270; J2370; J2405; J2704; J3010; J3370; J3490; P9016; P9045

== ENCOUNTER 2019-09-27 09:22 | Outpatient (CLI) | payer OTHER ==
--- NOTE | 2019-09-27 09:35 | RAD ---
TWO VIEWS LUMBAR SPINE: HISTORY: Low back pain. Surgery. COMPARISON: 12/03/2016. FINDINGS: Five lumbar-type vertebrae. Bilateral transpedicular screws at L4 and L5 without significant perihard ramirez lucency. L4-L5 disc prosthesis. L4 laminectomy defect. On the lateral projection, no malalignment. Vertebral body heights are maintained. No fracture. Incidental intrauterine device. Incidental cholecystectomy clips. IMPRESSION: Uncomplicated L4-L5 lumbar fusion. Transcribed Date/Time: 09/27/2019 9:54 AM
== END 2019-09-27 09:23 | disposition home or self-care (01) ==
LOC: TBSIIMAG 09:22
PROVIDERS: ATTEND Neurological Surgery
DX: M54.5 Low back pain (principal); Z98.1 Arthrodesis status
CPT/HCPCS: 72100

== ENCOUNTER 2019-10-18 10:07 | Emergency (ER) | payer OTHER | END 2019-10-18 10:33 | disposition left against medical advice (07) | LOC: ERS 10:07 | DX: Z53.21 Procedure and treatment not carried out due to patient leaving prior to being seen by health care provider (principal) ==

== ENCOUNTER 2020-01-18 11:54 | Outpatient (CLI) | payer OTHER ==
--- NOTE | 2020-01-18 15:19 | RAD ---
LUMBAR SPINE: 01/18/20 HISTORY: Low back pain. COMPARISON: 09/27/19. Pedicle screws are again noted at L4-5 with interbody implant. No evidence of hardware loosening. No change in position. The vertebral bodies maintain height and alignment. Disc spaces are preserved. N o interval change from prior exam. IMPRESSION: Postoperative changes lumbar spine appear stable. POS: AGW
== END 2020-01-18 11:55 | disposition home or self-care (01) ==
LOC: BICRAD 11:54
PROVIDERS: ATTEND Neurological Surgery
DX: M43.16 Spondylolisthesis, lumbar region (principal); M46.1 Sacroiliitis, not elsewhere classified; Z98.890 Other specified postprocedural states
CPT/HCPCS: 72100

== ENCOUNTER 2020-02-22 13:11 | Outpatient (CLI) | payer OTHER ==
[~2020-02-22 13:11] MED LIST: Magnevist 469MG/ML 20 ML VIAL ONE
--- NOTE | 2020-02-22 15:21 | MRI ---
MRI LUMBAR SPINE WITH AND WITHOUT CONTRAST: DATE: 02/22/2020 HISTORY: 34-year-old female with "spondylolisthesis of lumbar region" ICD-10: M 43.16 Low back pain COMPARISON: 07/06/2019 TECHNIQUE: Multiple sequences obtained in axial and sagittal planes, pre and post IV injection of gadolinium-bas ed contrast agent. FINDINGS: 5 lumbar-type vertebrae. Vertebral body heights are maintained. No anterolisthesis at any level. Conu s medullaris terminates at upper L2. No high-grade scoliosis. T12-L1:Normal L1-2:Normal L2-3:Normal L3-4:Normal disc signal and disc height. New slight retrolisthesis of L3 on L4. This results in new f inding of mild central spinal canal stenosis. New approximately 1 x 0.5 x 0.3 cm synovial cyst protruding slightly from anterior edge of left facet joint, minimally indenting left posterior aspect of thecal sac. No significant neural foraminal stenosis. L4-5:Previously, there was a midline laminectomy defect at this level. There has been interval new, w ider decompressive laminectomy at this level, resulting in very generous caliber of thecal sac. There has been interval removal of the previously demonstrated central and bilateral paracentral broa d-based disc herniation. There has been interval placement of interbody cage within the disc space. There are new bilateral pedicle screws at L4 and L5. No significant neural foraminal stenosis. L5-S1:Disc space maintained. Disc desiccation. Small central disc protrusion with annular fissure. No central stenosis. No high-grade neural foraminal stenosis. No interval change at this level. IMPRESSION: 1) interval resolution of wide laminectomy, and new posterior lumbar interbody fusion, at L4-5, since the prior MRI. 2) interval development of mild degenerative changes at L3-4, including low-grade facet osteoarthrosi s, and small left synovial cyst, and new mild central spinal canal stenosis at that level. 3) mild degenerative disc disease at L5-S1. 4) otherwise, the rest of the levels are essentially normal.
== END 2020-02-22 13:12 | disposition home or self-care (01) ==
LOC: BICMRI 13:11
PROVIDERS: ATTEND Neurological Surgery
DX: M43.16 Spondylolisthesis, lumbar region (principal); M47.816 Spondylosis without myelopathy or radiculopathy, lumbar region; M48.061 Spinal stenosis, lumbar region without neurogenic claudication; M71.38 Other bursal cyst, other site; M51.37 Other intervertebral disc degeneration, lumbosacral region; Z98.1 Arthrodesis status
CPT/HCPCS: 72158; A9579

== ENCOUNTER 2021-08-05 16:04 | Outpatient (CLI) | payer OTHER ==
[2021-08-06 12:02] LABS: SARS-CoV-2 PCR by NAA Not Detected (NotDetected)
== END 2021-08-05 16:05 | disposition home or self-care (01) ==
LOC: LABBT 16:04
PROVIDERS: ATTEND Specialist
DX: Z01.812 Encounter for preprocedural laboratory examination (principal); Z20.822 Contact with and (suspected) exposure to COVID-19
CPT/HCPCS: U0003; U0005

== ENCOUNTER 2021-08-10 10:29 | Day surgery (SDC) | payer OTHER ==
[2021-08-06 15:04] VITALS: BMI 28.3
[2021-08-10] MEDS ORDERED: CEFAZOLIN 1 GM VIAL ONE (10:55)
[2021-08-10] MEDS ORDERED: Sodium Chloride 0.9% 100 ML ONE (10:55)
[2021-08-10] MEDS ORDERED: Propofol 500 MG/50 ML VIAL ONE (11:04)
[2021-08-10] MEDS ORDERED: EPINEPHrine 1 MG/ML AMP ONE (12:00)
[2021-08-10] MEDS ORDERED: Bupivacaine PF 0.5% 30 ML VIAL ONE (12:00)
[2021-08-10] MEDS ORDERED: methylPREDNISolone Acetate 40 mg/ml Vial ONE (12:00)
[2021-08-10] MEDS ORDERED: Lidocaine 1% w/Epinephrine 1:100K 20 ML VIAL ONE (12:00)
[2021-08-10] MEDS ORDERED: Lidocaine 1% (PF) 30 ML VIAL ONE (12:08)
[2021-08-10] MEDS ORDERED: Fentanyl 100 MCG/2 ML VIAL ONE (12:27)
[2021-08-10] MEDS ORDERED: PROPOFOL 200 MG/20 ML VIAL ONE (12:29)
[2021-08-10] MEDS ORDERED: Midazolam HCl 2 mg/2 ml Vial ONE (12:55)
[2021-08-10] MEDS ORDERED: PROPOFOL 20 ML ONE (13:29)
[2021-08-10] MEDS ORDERED: HYDROcodone/Acetaminophen 5/325 mg Tablet ONE (15:01)
== END 2021-08-10 15:30 | disposition home or self-care (01) ==
LOC: SDC 10:29
PROVIDERS: ATTEND Specialist
PROC: 0JH70DZ Insertion of Multiple Array Stimulator Generator into Back Subcutaneous Tissue and Fascia, Open Approach (ICD-10-PCS; principal; 2021-08-10)
PROC: 00HU3MZ Insertion of Neurostimulator Lead into Spinal Canal, Percutaneous Approach (ICD-10-PCS; principal; 2021-08-10)
DX: M96.1 Postlaminectomy syndrome, not elsewhere classified (principal); G89.4 Chronic pain syndrome; M54.16 Radiculopathy, lumbar region; Z79.899 Other long term (current) drug therapy; Z98.1 Arthrodesis status
CPT/HCPCS: 72020; 76000; C1778; C1787; C1820; J0171; J0690; J2001; J2250; J2704; J2920; J3010; J3490; L8689; S0020

== ENCOUNTER 2022-09-02 09:13 | Outpatient (CLI) | payer BC | END 2022-09-02 09:14 | disposition home or self-care (01) | LOC: TBSIIMAG 09:13 | PROVIDERS: ATTEND Neurological Surgery | DX: M47.22 Other spondylosis with radiculopathy, cervical region (principal) | CPT/HCPCS: 72050 ==

== ENCOUNTER 2022-10-07 10:42 | Outpatient (CLI) | payer BC ==
[2022-10-07 13:58] LABS: Hemoglobin 13.2 g/dL (12.0-15.5); Mean Corpuscular HGB CONC 34.4 g/dL (32.0-36.0); Mean Corpuscular Hemoglobin 32.6 pg (27.0-33.0); Mean Corpuscular Volume 94.8 fl (81.6-98.3); Mean Platelet Volume 10.7 fl (7.4-10.4); Platelet Count 326 10x3/uL (150-450); RBC Distribution Width 11.9 % (11.5-14.5); Red Blood Cell (RBC) Count 4.05 10x6/uL (3.90-5.03)
[2022-10-07 14:16] LABS: INR-International Normal Ratio 0.9; PTT 30.6 sec (22.0-33.0); Prothrombin Time 10.3 sec (9.5-12.1)
== END 2022-10-07 10:43 | disposition home or self-care (01) ==
LOC: LABBT 10:42
PROVIDERS: ATTEND Neurological Surgery
DX: Z01.812 Encounter for preprocedural laboratory examination (principal); M50.023 Cervical disc disorder at C6-C7 level with myelopathy; M50.123 Cervical disc disorder at C6-C7 level with radiculopathy
CPT/HCPCS: 85027; 85610; 85730

== ENCOUNTER 2022-10-12 07:58 | Day surgery (SDC) | payer BC ==
[2022-10-11 13:12] VITALS: BMI 30.2
[2022-10-12] MEDS ORDERED: Neomycin-Polymyxin 1 ML AMP ONE (09:07)
[2022-10-12] MEDS ORDERED: Thrombin 5000 UNITS/5 ML VIAL ONE (09:07)
[2022-10-12] MEDS ORDERED: fentaNYL PF 100 MCG/2 ML SYRINGE ONE (09:45)
[2022-10-12] MEDS ORDERED: Midazolam HCl 2 mg/2 ml Vial ONE (09:45)
[2022-10-12] MEDS ORDERED: CEFAZOLIN 2 GM VIAL ONE (09:50)
[2022-10-12] MEDS ORDERED: Sodium Chloride 0.9% 100 ML ONE (09:50)
[2022-10-12] MEDS ORDERED: Ketorolac Tromethamine 30 MG/ML VIAL ONE (10:01)
[2022-10-12] MEDS ORDERED: Ondansetron PF 4 MG/2 ML Vial ONE (10:01)
[2022-10-12] MEDS ORDERED: PROPOFOL 200 MG/20 ML VIAL ONE (10:01)
[2022-10-12] MEDS ORDERED: Rocuronium Bromide 10 MG/ML (10ML VIAL) ONE (10:01)
[2022-10-12] MEDS ORDERED: Lidocaine 1% PF 5 ML VIAL ONE (10:01)
[2022-10-12] MEDS ORDERED: Dexamethasone 20 MG/5 ML VIAL ONE (10:01)
[2022-10-12] MEDS ORDERED: SUGAMMADEX SODIUM 200 MG/2 ML VIAL ONE (11:45)
[2022-10-12] MEDS ORDERED: Fentanyl 100 MCG/2 ML VIAL ONE ×2 (12:17→13:43)
[2022-10-12] MEDS ORDERED: HYDROmorphone 0.5 MG/0.5 ML SYRINGE ONE ×3 (12:58→13:29)
[2022-10-12] MEDS ORDERED: HYDROcodone/Acetaminophen 5/325 mg Tablet ONE (14:27)
== END 2022-10-12 15:14 | disposition home or self-care (01) ==
LOC: SDC 07:58
PROVIDERS: ATTEND Neurological Surgery
PROC: 0RG10A0 Fusion of Cervical Vertebral Joint with Interbody Fusion Device, Anterior Approach, Anterior Column, Open Approach (ICD-10-PCS; principal; 2022-10-12)
DX: M50.023 Cervical disc disorder at C6-C7 level with myelopathy (principal); M50.123 Cervical disc disorder at C6-C7 level with radiculopathy; M48.02 Spinal stenosis, cervical region; M47.12 Other spondylosis with myelopathy, cervical region; M47.22 Other spondylosis with radiculopathy, cervical region; M19.90 Unspecified osteoarthritis, unspecified site; M96.1 Postlaminectomy syndrome, not elsewhere classified; Z79.899 Other long term (current) drug therapy; Z91.048 Other nonmedicinal substance allergy status; Z98.1 Arthrodesis status
CPT/HCPCS: C1713; J1100; J1170; J1885; J2250; J2405; J2704; J3010; J3490

== ENCOUNTER 2022-12-09 15:56 | Outpatient (CLI) | payer BC | END 2022-12-09 15:57 | disposition home or self-care (01) | LOC: TBSIIMAG 15:56 | PROVIDERS: ATTEND Neurological Surgery | DX: M54.12 Radiculopathy, cervical region (principal); Z98.1 Arthrodesis status | CPT/HCPCS: 72040 ==

== ENCOUNTER 2023-07-13 13:00 | Outpatient (CLI) | payer BC | END 2023-07-13 13:01 | disposition home or self-care (01) | LOC: SCSMRI 13:00 | PROVIDERS: ATTEND Neurological Surgery | DX: M47.812 Spondylosis without myelopathy or radiculopathy, cervical region (principal); M48.02 Spinal stenosis, cervical region; Z98.1 Arthrodesis status | CPT/HCPCS: 72141 ==

== ENCOUNTER 2024-06-26 13:07 | Emergency (ER) | payer BC ==
[2024-06-26 14:13] LABS: #Basophils 0.06 10x3/uL (0.0-0.2); %Basophils 0.9 % (0.0-1.0); %Eosinophils 0.9 % (0.0-10.0); %Lymphocytes 35.5 % (21.0-51.0); %Monocytes 7.6 % (0.0-10.0); Hematocrit 41.1 % (36.0-47.0); Hemoglobin 13.9 g/dL (12.0-16.0); Mean Corpuscular HGB CONC 33.8 g/dL (32.0-36.0); Mean Corpuscular Hemoglobin 31.8 pg (27.0-31.0); Mean Corpuscular Volume 94.1 fL (78.0-98.0); Mean Platelet Volume 11.6 fL (7.4-10.4); Platelet Count 186 10x3/uL (130-400); Red Blood Cell (RBC) Count 4.37 mill/uL (4.20-5.40)
[2024-06-26 14:26] LABS: BHCG - Serum Negative (NEGATIVE); Pregs Control Background? CLEAR/WHITE (CLR/WHITE); Pregs Control Bar Appear? YES (CONTROL BAR)
[2024-06-26 14:37] LABS: ALT (SGPT) 24 U/L (8-55); AST (SGOT) 20 U/L (5-34); Alkaline Phosphatase 118 U/L (40-110); Anion Gap 12 mmol/L (10-20); BUN (Urea Nitrogen) 8 mg/dL (7.0-18.7); Bilirubin, Total 0.3 mg/dL (0.2-1.2); Calc. Creatinine Clearance 0 mL/min (70-130); Calcium 9.3 mg/dL (7.8-10.44); Carbon Dioxide 21 mmol/L (22-29); Chloride 109 mmol/L (98-107); Estimated GFR 91; Globulin 2.9 g/dL (2.4-3.5); Glucose 84 mg/dL (70-105); Potassium 4.2 mmol/L (3.5-5.1); Protein, Total 6.9 g/dL (6.0-8.3); Sodium 138 mmol/L (136-145)
[2024-06-26] MEDS ORDERED: Ketorolac Tromethamine 30 MG (1 mL) VIAL ONE (16:02)
[2024-06-26] MEDS ORDERED: HYDROcodone/Acetaminophen 5/325 mg Tablet ONE (16:03)
== END 2024-06-26 16:27 | disposition home or self-care (01) ==
LOC: ERS 13:07
DX: M51.26 Other intervertebral disc displacement, lumbar region (principal); G89.29 Other chronic pain
CPT/HCPCS: 36415; 72125; 72128; 72131; 80053; 84703; 85025; 96372; J1885

== ENCOUNTER 2024-07-06 07:43 | Outpatient (CLI) | payer BC | END 2024-07-06 07:44 | disposition home or self-care (01) | LOC: SCSMRI 07:43 | PROVIDERS: ATTEND Nurse Practitioner Family | DX: M96.1 Postlaminectomy syndrome, not elsewhere classified (principal); M51.26 Other intervertebral disc displacement, lumbar region; M48.061 Spinal stenosis, lumbar region without neurogenic claudication; Z98.1 Arthrodesis status | CPT/HCPCS: 72148 ==

== ENCOUNTER 2024-08-30 08:16 | Outpatient (CLI) | payer BC | END 2024-08-30 08:17 | disposition home or self-care (01) | LOC: SCSMRI 08:16 | PROVIDERS: ATTEND Neurological Surgery | DX: S33.0XXA Traumatic rupture of lumbar intervertebral disc, initial encounter (principal); S73.192A Other sprain of left hip, initial encounter; S39.013A Strain of muscle, fascia and tendon of pelvis, initial encounter; M51.369 Other intervertebral disc degeneration, lumbar region without mention of lumbar back pain or lower extremity pain | CPT/HCPCS: 72197 ==

== ENCOUNTER 2025-07-24 12:48 | Outpatient (CLI) | payer BC | END 2025-07-24 12:49 | disposition home or self-care (01) | LOC: SCSMRI 12:48 | PROVIDERS: ATTEND Nurse Practitioner Family | DX: M54.12 Radiculopathy, cervical region (principal); M48.02 Spinal stenosis, cervical region | CPT/HCPCS: 72141 ==

== ENCOUNTER 2025-07-31 17:40 | Emergency (ER) | payer BC ==
[2025-07-31] MEDS ORDERED: Dexamethasone 10 MG/ML VIAL ONE (19:30)
[2025-07-31] MEDS ORDERED: Ketorolac Tromethamine 30 MG (1 mL) VIAL ONE (19:30)
== END 2025-07-31 21:19 | disposition home or self-care (01) ==
LOC: ERS 17:40
DX: M54.12 Radiculopathy, cervical region (principal)
CPT/HCPCS: 72125; 96374; 96375; J1100; J1885; J2060; J3010